=== PATIENT | male | born 1980 | race Caucasian/White ===

== ENCOUNTER 2017-09-12 15:47 | Emergency (ER) | payer SELFPAY, OTHER ==
[2017-09-12] MEDS: LORAZEPAM 1 MG TAB PO (17:51)
== END 2017-09-12 19:02 | disposition home or self-care (01) ==
LOC: FTE 15:47
DX: R07.9 Chest pain, unspecified (principal); R03.0 Elevated blood-pressure reading, without diagnosis of hypertension; F41.9 Anxiety disorder, unspecified
CPT/HCPCS: 93005; 99283